=== PATIENT | female | born 1960 | race Caucasian/White ===

== ENCOUNTER 2017-05-03 09:27 | Emergency (ER) | payer MEDICAID ==
[~2017-05-03] VITALS: Ht 170.2 cm; Wt 47.0 kg
[~2017-05-03 09:27] MED LIST: LISINOPRIL20 MG PO; PERCOCET1 TA2 PO
[2017-05-03] MEDS ORDERED: CEPHALEXIN500 MG PO (12:25)
[2017-05-03] MEDS ORDERED: BACTRIM DS1 TAB PO (12:25)
[2017-05-03 12:46] VITALS: BP 144/81
[2017-05-03] MEDS ORDERED: LISINOPRIL20 MG PO (12:49)
== END 2017-05-03 12:50 | disposition home or self-care (01) | DRG 603 ==
LOC: ED 09:27
DX: L03.115 Cellulitis of right lower limb (principal); M25.561 Pain in right knee

== ENCOUNTER 2017-05-04 10:10 | Emergency (ER) | payer MEDICAID ==
[~2017-05-04] VITALS: Ht 170.2 cm; Wt 50.0 kg
[~2017-05-04 10:10] MED LIST changes: +BACTRIM DS1 TAB PO; +CEPHALEXIN500 MG PO
[2017-05-04 10:37] VITALS: BP 118/60
== END 2017-05-04 10:37 | disposition home or self-care (01) | DRG 951 ==
LOC: ED 10:10
DX: Z48.01 Encounter for change or removal of surgical wound dressing (principal)

== ENCOUNTER 2018-07-27 12:03 | Emergency (ER) | payer MEDICAID ==
[~2018-07-27] VITALS: Ht 170.2 cm; Wt 48.2 kg
[~2018-07-27 12:03] MED LIST changes: +BACTROBAN TOP; +KEFLEX500 M1 PO
[2018-07-27 13:28] LABS: HEMATOCRIT 45.3 % (37.0-47.0); IMMATURE GRANULOCYTES 0.2 % (0.0-5.0); MEAN CELL VOLUME 103.4 fL CALC (80.0-100.0); MEAN CORPUSCULAR HGB 37.9 pG CALC (26.0-32.0); MEAN CORPUSCULAR HGB CONC 36.6 g/L CALC (32.0-36.0); NEUT# 3.14 thou/uL (2.00-7.15); RED BLOOD COUNT 4.38 mill/uL (4.20-5.60); RED CELL DISTRI WIDTH 11.9 % (11.5-15.5)
[2018-07-27 13:34] LABS: ALKALINE PHOSPHATASE 102 u/l (38-126); BILIRUBIN, TOTAL 0.7 mg/dL (0.0-1.4); BUN 6 mg/dL (7-17); BUN/CREATININE RATIO 12 (12-20 (CALC)); CARBON DIOXIDE 29 mmol/l (22-30); CREATININE 0.5 mg/dL (0.5-1.0); GFR > 60 ML/MIN (>=60 (CALC)); GFR FOR AFR.AMER. > 60 ML/MIN (>=60 (CALC)); POTASSIUM 3.9 mmol/l (3.5-5.1); SGOT/AST 31 u/l (14-36); TOTAL PROTEIN 7.8 g/dL (6.3-8.2)
[2018-07-27 13:39] LABS: HEMOGLOBIN 16.6 g/dl (12.0-16.0)
[2018-07-27 13:44] LABS: ANION GAP 16 (6-22 (CALC)); CHLORIDE 88 mmol/l (95-108); SODIUM 129 mmol/l (137-146)
[2018-07-27 14:30] VITALS: BP 132/71
[2018-07-27] MEDS ORDERED: LISINOP/HCTZ1 TA2 PO (15:10)
[2018-07-27] MEDS ORDERED: OMEPRAZOLE20 M1 PO (15:12)
[2018-07-27] MEDS ORDERED: ALEVE220 M1 PO (15:13)
== END 2018-07-27 15:15 | disposition home or self-care (01) ==
LOC: ED 12:03
PROVIDERS: Emergency Medicine
DX: I10 Essential (primary) hypertension (principal); E87.1 Hypo-osmolality and hyponatremia; F17.210 Nicotine dependence, cigarettes, uncomplicated; Z72.89 Other problems related to lifestyle; M06.9 Rheumatoid arthritis, unspecified

== ENCOUNTER 2018-11-07 06:50 | Day surgery (SDC) | payer MEDICAID ==
[~2018-11-07 06:50] MED LIST changes: +ALEVE220 M1 PO; +AMLODIPINE5 MG PO; +HYDROCHLOROT25 MG PO; +LISINOP/HCTZ1 TA2 PO; +OMEPRAZOLE20 M1 PO
[2018-11-07 07:21] LABS: BARBITURATES NEGATIVE (NEGATIVE); COCAINE NEGATIVE (NEGATIVE); METHADONE NEGATIVE (NEGATIVE); OXCYCODONE NEGATIVE (NEGATIVE); TETRAHYDROCANNABIONOL POSITIVE (NEGATIVE); TRICYLIC ANTIDEPRESSANTS NEGATIVE (NEGATIVE)
[2018-11-07 10:11] VITALS: BP 132/65
== END 2018-11-07 10:20 | disposition home or self-care (01) ==
LOC: ENDO 06:50 → ORM 09:00 → ENDO 09:00
PROVIDERS: ATTEND Surgery
DX: K50.111 Crohn's disease of large intestine with rectal bleeding (principal); K57.31 Diverticulosis of large intestine without perforation or abscess with bleeding; K63.5 Polyp of colon; K64.8 Other hemorrhoids; I10 Essential (primary) hypertension; F17.210 Nicotine dependence, cigarettes, uncomplicated; Z80.0 Family history of malignant neoplasm of digestive organs

== ENCOUNTER 2024-07-23 09:38 | Day surgery (SDC) | payer MEDICAID ==
[~2024-07-23] VITALS: Ht 167.6 cm; Wt 61.7 kg
[~2024-07-23 09:38] MED LIST changes: +ASPIRIN 81 LOW81 MG PO; +B121000 MC1 PO; +CELECOXIB200 MG PO; +CYCLOBENZAPRINE10 MG PO; +D31000 UNIT PO; +ESOMEPRAZOLE MA20 MG PO; +FOLIC ACID800 MCG PO; +FUROSEMIDE20 MG PO; +HYDROXYCHLOROQ200 MG PO; +IBANDRONATE SO150 MG PO; +LEVOCETIRIZINE D5 MG PO; +MAGNESIUM 250 M1 TAB PO; +NEBIVOLOL10 MG PO; +NORVASC PO; +TYLENOL500 MG PO
[2024-07-23] MEDS ORDERED: FAMOTIDINE 10MG/ML 2ML SDV IV ONE (10:24)
[2024-07-23] MEDS ORDERED: LACTATED RINGER'S 1,000 ML IV ONE (10:25)
[2024-07-23 12:29] VITALS: BP 156/87
[2024-07-23] MEDS ORDERED: GLYCOPYRROLATE 0.2 MG/ML IV ONE (13:22)
[2024-07-23] MEDS ORDERED: LIDOCAINE HCL 2% 2ML SDV IV ONE (13:22)
[2024-07-23] MEDS ORDERED: PROPOFOL 200 MG/20 ML VIAL IV ONE (13:22)
== END 2024-07-23 12:39 | disposition home or self-care (01) ==
LOC: ORM 09:38
PROVIDERS: ATTEND Surgery
DX: Z12.11 Encounter for screening for malignant neoplasm of colon (principal); K63.5 Polyp of colon; K57.30 Diverticulosis of large intestine without perforation or abscess without bleeding; K64.8 Other hemorrhoids; Z80.0 Family history of malignant neoplasm of digestive organs; Z86.0100 Personal history of colon polyps, unspecified
CPT/HCPCS: J1596